=== PATIENT | female | born 1965 | race Caucasian/White ===

== ENCOUNTER → 2018-07-27 13:15 | Outpatient (REF) | payer OTHER, SELFPAY | LOC: LAB 13:15 | PROVIDERS: Family Provider Registered Nurse Women's Health Care, Ambulatory; PCP Registered Nurse Women's Health Care, Ambulatory; Visit Provider Family Medicine | DX: R07.0 Pain in throat (principal) | CPT/HCPCS: 87070 ==

== ENCOUNTER → 2022-05-14 16:18 | Outpatient (CLI) | payer OTHER, SELFPAY ==
--- NOTE | 2022-05-14 16:22 | DI.RAD.S_ITS ---
PROCEDURE: XR CHEST 2V INDICATIONS: COUGH AND FEVER TECHNIQUE: 2 views of the chest were acquired. COMPARISON: None. FINDINGS: Lungs and pleura: Lungs are clear. No pleural effusions or pneumothorax. Mediastinum: Cardiac silhouette is at the upper limit of normal in size. No definite pulmonary vascular congestion. Bones and chest wall: No suspicious bony abnormalities. Soft tissues appear unremarkable. IMPRESSION: No acute cardiopulmonary abnormality. Dictated by: Rj De Santiago M.D. on 05/14/2022 at 17:21 Approved by: Rj De Santiago M.D. on 05/14/2022 at 17:23
== END ==
PROVIDERS: Family Provider Registered Nurse Women's Health Care, Ambulatory; PCP Registered Nurse Women's Health Care, Ambulatory; Referring Provider Registered Nurse; Visit Provider Registered Nurse
DX: R05.9 Cough, unspecified (principal); R50.9 Fever, unspecified
CPT/HCPCS: 71046

== ENCOUNTER 2022-07-05 21:42 | Emergency (ER) | payer OTHER, SELFPAY ==
[2022-07-05 21:52] VITALS: BP 202/123; PULSE 80; RESP 18; TEMP 36.6; O2SAT 100; BMI 32.3
--- NOTE | 2022-07-05 22:01 | DI.RAD.S_ITS ---
PROCEDURE: XR CHEST 1V INDICATIONS: chest pain TECHNIQUE: One view of the chest was acquired. COMPARISON: [facility], CR, XR CHEST 2V, 05/14/2022, 16:42. FINDINGS: Surgical changes and devices: None. Lungs and pleura: Lungs are clear. No pleural effusions or pneumothorax. Mediastinum: Mediastinal contours appear normal. Heart size is normal. Bones and chest wall: No suspicious bony lesions. Overlying soft tissues appear unremarkable. IMPRESSION: 1. No acute cardiopulmonary disease. Dictated by: Jh Gomez M.D. on 07/05/2022 at 22:27 Approved by: Jh Gomez M.D. on 07/05/2022 at 22:27
[2022-07-05 22:16] VITALS: BP 181/109
[2022-07-05 22:24] LABS: Add Manual Diff / Slide Review NO; Basophils Absolute Auto 100 /uL (0-100); Basophils Percent Auto 1.8 % (0-2); Eosinophils Absolute Auto 200 /uL (0-450); Eosinophils Percent Auto 2.9 % (2-4); Hematocrit 38.2 % (36-46); Lymphocytes Absolute Auto 2400 /uL (1100-4500); Lymphocytes Percent Auto 32.7 % (25-40); Mean Corpuscular Hemoglobin 30.4 PG (26-34); Mean Corpuscular Volume 89.5 fL (80-100); Monocytes Absolute Auto 600 /uL (0-900); Monocytes Percent Auto 8.1 % (3-14); Neutrophils Absolute Auto 4000 /uL (1500-7000); Neutrophils Percent Auto 54.5 % (50-75); Platelet Count 289 X10^3/uL (150-400); Red Blood Cell Count 4.27 X10^6/uL (4.0-5.2); Red Cell Distribution Width 13.4 % (11.6-14.8); White Blood Cell Count 7.3 X10^3/uL (4.5-11.0)
[2022-07-05 22:29] LABS: Alanine Aminotransferase 35 IU/L (<35); Albumin 4.5 g/dL (3.5-5.0); Albumin Globulin Ratio 1.3 (1.0-2.8); Alkaline Phosphatase 109 U/L (38-126); Aspartate Aminotransferase 29 IU/L (14-36); BUN Creatinine Ratio 21.7 (6-22); Bilirubin Total 0.3 mg/dL (0.2-1.3); Blood Urea Nitrogen 15 mg/dL (7-17); Calcium 9.1 mg/dL (8.4-10.2); Carbon Dioxide 22 mmol/L (22-32); Chloride 103 mmol/L (98-107); Creatine Kinase 104 U/L (30-135); Estimated Glomerular Filt Rate > 60 mL/min (>60); Globulin 3.6 g/dL (1.7-4.1); Glucose 113 mg/dL (70-100); HEMOLYSIS 20 (0-50); Lipase 171 U/L (23-300); Magnesium 1.7 mg/dL (1.6-2.3); Potassium 3.6 mmol/L (3.4-5.1); Sodium 136 mmol/L (137-145); Total Protein 8.1 g/dL (6.3-8.2)
[2022-07-05 22:36] LABS: COVID19 -Nasal RAPID Negative (Negative)
[2022-07-05 22:38] LABS: NT-proBNP (BNP-Adult 18+) 48 pg/mL (<125)
[2022-07-05 22:39] LABS: INR 0.9 (0.9-1.3); Prothrombin Time 10.1 SECONDS (10.1-12.7)
[2022-07-05 22:40] LABS: Troponin I < 0.012 ng/mL (0.01-0.034)
[2022-07-05 22:42] LABS: PTT Partial Thromboplastin Tim 30 SECONDS (26-36)
[2022-07-05 22:44] LABS: CKMB % Relative Index 1.3 % (1.5-5.0); Creatine Kinase MB 1.34 ng/mL (<2.37)
[2022-07-05 23:10] VITALS: PULSE 81; O2SAT 97
[2022-07-05 23:20] VITALS: PULSE 74; O2SAT 97
[2022-07-05] MEDS: METOPROLOL IR 25 MG TABLET 50 MG PO (23:31)
[2022-07-05 23:33] VITALS: BP 169/108; PULSE 91; O2SAT 98
[2022-07-05 23:40] VITALS: PULSE 77; O2SAT 98
[2022-07-06] VITALS: PULSE 78; O2SAT 98
[2022-07-06 00:10] VITALS: BP 173/88; PULSE 73; O2SAT 98
--- NOTE | 2022-07-06 00:10 | ED.GENADULT ---
HPI - General Adult General Chief complaint: Hypertension Stated complaint: BP 220/120 Time Seen by Provider: 07/05/22 23:26 Source: patient Mode of arrival: Ambulatory History of Present Illness HPI narrative: 56-year-old female with history of hypertension and diabetes. Patient states that she presents for elevated blood pressure she was told to come to the ER for blood pressure is 170/110 or higher. She states she checked at home was 220/1 20s, she takes daily she is been averaging 140s typically but for the past 2 has been 150 to 160s. Patient states she has had headache occasionally but intermittently. She is a history of migraines she states it does not feel like that she describes it as mild, she denies dizziness, no passing-out, no fevers or chills, no cold cough or congestion. No chest pain or shortness of breath. No nausea or vomiting. She states she felt sweaty this morning and that she does get hot flashes. She denies diarrhea constipation. No urinary symptoms. No abdominal back or flank pain. No syncope. Patient notes that her metoprolol was changed from 50 mg b.i.d. which she had started in April. A week and a half ago she had her metoprolol changed to 100 mg extended-release daily and takes about 9:00 a.m.. She also takes metformin, she is Relpax as needed for migraines but has not taken it she does not feel like she is having a migraine. She is history knee surgery, , states allergy to amoxicillin. No tobacco, she will have 2 or 3 shots of Tequila 3 times a week. She denies any tonight but states her headaches get better when she has the Tequila. No illicit. Related Data Home Medications Medication Instructions Recorded Confirmed eletriptan 20 mg tablet (Relpax) 20 mg PO PRN ##0 06/30/12 06/22/21 norgestimate 0.25 mg-ethinyl 1 tab PO Q DAY ##0 06/30/12 06/22/21 estradiol 35 mcg tablet (Sprintec (28)) Previous Rx's Medication Instructions Recorded BENZONATATE (TESSALON PERLES~) 0 PO TIDP ##30 06/30/12 prednisone 20 mg tablet 0 PO SEE INSTRUCTIONS ##10 06/30/12 Allergies Allergy/AdvReac Type Severity Reaction Status Date / Time amoxicillin Allergy Severe Swelling Verified 07/05/22 21:52 of Lip/Tongue/Throat Review of Systems Review of Systems ROS Unobtainable: All systems reviewed & are unremarkable except as noted in HPI and below Patient History Social History Smoking Status: Never smoker Smoking Status: Never smoker alcohol intake frequency: holidays/special occasions only Alcohol type: hard liquor Substance Use Type: does not use Exam Narrative Exam Narrative: GEN: well nourished, well appearing female, alert and oriented x 3, patient appears to be in mild distress. HEENT: Atraumatic, pupils are equal round reactive to light, extraocular movements are intact, nares are clear, TMs are clear with no fluid, there is no conjunctival pallor. Throat is clear without any exudates, erythema, tonsillar enlargement or uvular deviation, facial droop. HEART: Regular rate and rhythm without murmur, clicks, rubs. LUNGS:Lungs clear to auscultation, no wheezes, rales, crackles, chest moves symmetrically ABD:bowel sounds normal, soft, non-tender, no guarding, rebound, rigidity, no masses noted, no hepatosplenomegaly :No CVA tenderness MSCL: Non-tender, no muscle atrophy, muscles strength 5/5 upper and lower extremities, full range of motion, normal gait NEURO:CN 2-12 intact, sensation normal Initial Vital Signs Initial Vital Signs: Vital Signs Temperature 98 F 07/05/22 21:52 Pulse Rate 80 07/05/22 21:52 Respiratory Rate 18 07/05/22 21:52 Blood Pressure 202/123 H 07/05/22 21:52 Pulse Oximetry 100 07/05/22 21:52 Oxygen Delivery Method 07/05/22 21:52 Course Orders Ordered: ED Orders 07/05/22 22:01 XR chest 1V Stat EKG-12 Lead Stat 07/05/22 22:08 BNP [NT-proBNP (BNP-Adult 18+)] Stat COVID19 -Nasal RAPID/Pre-Proc Stat Complete Blood Count AUTO DIFF Stat Comprehensive Metabolic Panel Stat Lipase Stat Magnesium Stat Partial Thromboplastin Time Stat Prothrombin Time INR Stat Troponin & CK Cardiac Panel Stat Discontinued Medications Metoprolol Tartrate (Metoprolol Ir 25 Mg Tablet) 50 mg PO NOW ONE Stop: 07/05/22 23:27 Last Admin: 07/05/22 23:31 Dose: 50 mg Documented By: BRIANA Vital Signs Vital signs: Vital Signs - 8 hr 07/05/22 23:10 07/05/22 23:20 07/05/22 23:33 Temperature Pulse Rate 81 74 91 H Respiratory Rate Blood Pressure Pulse Oximetry 97 97 98 Oxygen Delivery Method 07/05/22 23:33 07/05/22 23:40 07/06/22 00:00 Temperature Pulse Rate 77 78 Respiratory Rate Blood Pressure 169/108 H Pulse Oximetry 98 98 Oxygen Delivery Method 07/06/22 00:10 07/06/22 00:10 07/06/22 00:20 Temperature Pulse Rate 73 Respiratory Rate Blood Pressure 173/88 H 184/96 H Pulse Oximetry 98 Oxygen Delivery Method 07/06/22 00:20 07/06/22 00:40 07/06/22 00:40 Temperature Pulse Rate 64 69 Respiratory Rate Blood Pressure 160/96 H Pulse Oximetry 99 98 Oxygen Delivery Method 07/06/22 00:50 Temperature 97.4 F L Pulse Rate 80 Respiratory Rate 16 Blood Pressure 164/88 H Pulse Oximetry 99 Oxygen Delivery Method Room Air Medical Decision Making Lab Data Result diagrams: 07/05/22 22:08 07/05/22 22:08 Labs: Lab Results 07/05/22 07/05/22 07/05/22 Range/Units 22:08 22:08 22:08 WBC 7.3 (4.5-11.0) X10^3/uL RBC 4.27 (4.0-5.2) X10^6/uL Hgb 13.0 (12.0-16.0) g/dL Hct 38.2 (36-46) % MCV 89.5 (80-100) fL MCH 30.4 (26-34) PG MCHC 34.0 (30-36) % RDW 13.4 (11.6-14.8) % Plt Count 289 (150-400) X10^3/uL Neut % (Auto) 54.5 (50-75) % Lymph % (Auto) 32.7 (25-40) % Crenshaw % (Auto) 8.1 (3-14) % Eos % (Auto) 2.9 (2-4) % Baso % (Auto) 1.8 (0-2) % Neut # (Auto) 4000 (4315-0506) /uL Lymph # (Auto) 2400 (7174-6347) /uL Crenshaw # (Auto) 600 (0-900) /uL Eos # (Auto) 200 (0-450) /uL Baso # (Auto) 100 (0-100) /uL PT 10.1 (10.1-12.7) SECONDS INR 0.9 (0.9-1.3) APTT 30 (26-36) SECONDS Sodium 136 L (137-145) mmol/L Potassium 3.6 (3.4-5.1) mmol/L Chloride 103 (98-107) mmol/L Carbon Dioxide 22 (22-32) mmol/L BUN 15 (7-17) mg/dL Creatinine 0.69 (0.52-1.04) mg/dL Estimated GFR > 60 (>60) mL/min BUN/Creatinine Ratio 21.7 (6-22) Glucose 113 H (70-100) mg/dL Calcium 9.1 (8.4-10.2) mg/dL Magnesium 1.7 (1.6-2.3) mg/dL Total Bilirubin 0.3 (0.2-1.3) mg/dL AST 29 (14-36) IU/L ALT 35 H (<35) IU/L Alkaline Phosphatase 109 (38-126) U/L Total Creatine Kinase 104 (30-135) U/L CK-MB (CK-2) 1.34 (<2.37) ng/mL CK-MB (CK-2) Rel Index 1.3 L (1.5-5.0) % Troponin I < 0.012 (0.01-0.034) ng/mL NT-Pro-B Natriuret Pep (<125) pg/mL Total Protein 8.1 (6.3-8.2) g/dL Albumin 4.5 (3.5-5.0) g/dL Globulin 3.6 (1.7-4.1) g/dL Albumin/Globulin Ratio 1.3 (1.0-2.8) Lipase 171 (23-300) U/L SARS-CoV-2 (PCR) (Negative) 07/05/22 07/05/22 Range/Units 22:08 22:08 WBC (4.5-11.0) X10^3/uL RBC (4.0-5.2) X10^6/uL Hgb (12.0-16.0) g/dL Hct (36-46) % MCV (80-100) fL MCH (26-34) PG MCHC (30-36) % RDW (11.6-14.8) % Plt Count (150-400) X10^3/uL Neut % (Auto) (50-75) % Lymph % (Auto) (25-40) % Crenshaw % (Auto) (3-14) % Eos % (Auto) (2-4) % Baso % (Auto) (0-2) % Neut # (Auto) (9862-4946) /uL Lymph # (Auto) (0409-1689) /uL Crenshaw # (Auto) (0-900) /uL Eos # (Auto) (0-450) /uL Baso # (Auto) (0-100) /uL PT (10.1-12.7) SECONDS INR (0.9-1.3) APTT (26-36) SECONDS Sodium (137-145) mmol/L Potassium (3.4-5.1) mmol/L Chloride (98-107) mmol/L Carbon Dioxide (22-32) mmol/L BUN (7-17) mg/dL Creatinine (0.52-1.04) mg/dL Estimated GFR (>60) mL/min BUN/Creatinine Ratio (6-22) Glucose (70-100) mg/dL Calcium (8.4-10.2) mg/dL Magnesium (1.6-2.3) mg/dL Total Bilirubin (0.2-1.3) mg/dL AST (14-36) IU/L ALT (<35) IU/L Alkaline Phosphatase (38-126) U/L Total Creatine Kinase (30-135) U/L CK-MB (CK-2) (<2.37) ng/mL CK-MB (CK-2) Rel Index (1.5-5.0) % Troponin I (0.01-0.034) ng/mL NT-Pro-B Natriuret Pep 48 (<125) pg/mL Total Protein (6.3-8.2) g/dL Albumin (3.5-5.0) g/dL Globulin (1.7-4.1) g/dL Albumin/Globulin Ratio (1.0-2.8) Lipase (23-300) U/L SARS-CoV-2 (PCR) Negative (Negative) Imaging Data Chest x-ray: Radiologist's Impression: [address] [address] XRay Report Signed Patient: Wanda Raymundo MR#: [id number] : 1965 Acct:[id number] Age/Sex: 56 / F Date of Service: 07/05/22 Loc: ED Accession Number: [id number] ?? Procedure: XR chest 1V Ordering Provider: Era Hammond D.O. PROCEDURE:? XR CHEST 1V ? INDICATIONS:? chest pain ? TECHNIQUE:? One view of the chest was acquired.? ? COMPARISON:? [facility], CR, XR CHEST 2V, 05/14/2022, 16:42. ? FINDINGS:? ? Surgical changes and devices:? None.? ? Lungs and pleura:? Lungs are clear.? No pleural effusions or pneumothorax.? ? Mediastinum:? Mediastinal contours appear normal.? Heart size is normal.? ? Bones and chest wall:? No suspicious bony lesions.? Overlying soft tissues appear unremarkable.? ? IMPRESSION:? ? 1.? No acute cardiopulmonary disease. ? ? ? Dictated by: Jh Gomez M.D. on 07/05/2022 at 22:27 ? ? Approved by: Jh Gomez M.D. on 07/05/2022 at 22:27?? ECG Data Attestation: I personally reviewed and interpreted this ECG as follows: Prior ECG tracings: not available for review Interpretation: Sinus rhythm rate 83 DE 130 QRS 86 QTC [address] No acute ST changes noted. MDM Narrative Medical decision making narrative: This is a 56-year-old female with hypertension, diabetes who was hypertensive at home still quite hypertensive upon arrival despite taking her home medications, her exam overall is reassuring. I gave her a dose of her 50 mg short-acting metoprolol which she has tolerated well. Discussed if she is persistently hypertensive at home for the short-term can do an extra dose of her short-acting metoprolol but to continue her home medications and monitoring. We discussed she needs to follow up with her physician for recheck, discussion or adjustment of medications as needed. All questions answered we did discuss return precautions. Discharge Plan Departure Patient Disposition: Home Clinical Impression: Hypertension Instructions: DI for High Blood Pressure Activity Restrictions/Additional Instructions: Follow-up with your physician this week, you can call the physician office after hours if you are unsure if you can take an extra dose of your medication. They do have a person on-call available on nights and weekends. Your white blood cell count today was 7.3 Please take your home medications as prescribed. If your blood pressure is consistently running above 180 systolic on recheck at home, if you wait 1 or 2 hours and it is still elevated you can take an extra dose of her short-acting metoprolol. Please return for severe headaches, passing out, new chest pain, shortness of breath, persistent vomiting, new swelling in your extremities or other new or concerning changes. Prescriptions: No Action norgestimate-ethinyl estradiol [Sprintec (28)] 1 EACH tablet 1 tab PO Q DAY Qty: 0 eletriptan [Relpax] 20 MG tablet 20 mg PO PRN Qty: 0 prednisone 20 MG tablet 0 PO SEE INSTRUCTIONS Qty: 10 0RF BENZONATATE (TESSALON PERLES~) 0 PO TIDP Qty: 30 0RF Referrals: Zeenat Champion ARNP [Primary Care Provider] - Visit Report Forms: Patient Portal/API
[2022-07-06 00:20] VITALS: BP 184/96; PULSE 64; O2SAT 99
[2022-07-06 00:40] VITALS: BP 160/96; PULSE 69; O2SAT 98
[2022-07-06 00:50] VITALS: BP 164/88; PULSE 80; RESP 16; TEMP 36.3; O2SAT 99
== END 2022-07-06 00:45 | disposition home or self-care (01) ==
PROVIDERS: Emergency Provider Emergency Medicine; Family Provider Registered Nurse Women's Health Care, Ambulatory; PCP Registered Nurse Women's Health Care, Ambulatory
DX: I10 Essential (primary) hypertension (principal); Z20.822 Contact with and (suspected) exposure to COVID-19
CPT/HCPCS: 36415; 71045; 80053; 82550; 82553; 83690; 83735; 83880; 84484; 85025; 85610; 85730; 87635; 93005; 99283; 99284; C9803

== ENCOUNTER → 2022-07-09 17:34 | Outpatient (ROUT) | payer OTHER, SELFPAY ==
[2022-07-09 18:23] LABS: Influenza A - CEPHEID Flu A POSITIVE (NEGATIVE); Influenza B - CEPHEID Flu B NEGATIVE (NEGATIVE); Respiratory Syncytial Virus Negative (Negative)
[2022-07-09 18:24] LABS: COVID-19 CEPHEID 4-PLEX PCR Negative (Negative)
== END ==
PROVIDERS: Family Provider Registered Nurse Women's Health Care, Ambulatory; PCP Registered Nurse Women's Health Care, Ambulatory; Visit Provider Internal Medicine
DX: Z20.822 Contact with and (suspected) exposure to COVID-19 (principal)
CPT/HCPCS: 0241U

== ENCOUNTER → 2022-08-07 14:52 | Outpatient (CLI) | payer OTHER, SELFPAY ==
--- NOTE | 2022-08-07 | DI.MG.S_ITS ---
BILATERAL DIGITAL SCREENING MAMMOGRAM 3D/2D WITH CAD: 08/07/2022 CLINICAL: Routine screening. Comparison is made to exam dated: 10/08/2010 mammogram - [facility]. There are scattered areas of fibroglandular density in both breasts (category b / 25%-50% glandular tissue). Current study was also evaluated with a Computer Aided Detection (CAD) system. No significant masses, calcifications, or other findings are seen in either breast. There has been no significant interval change. IMPRESSION: NEGATIVE There is no mammographic evidence of malignancy. A 1 year screening mammogram is recommended. Based on the Tyrer Cuzick model (a risk assessment model) the patient's lifetime risk is 8.7% and her 10 year risk is 2.5%. According to the ACR, ACS, and NCCN guidelines, an annual breast MRI exam along with mammogram is recommended if the patient's lifetime risk is 20% or greater. This exam was interpreted at Station ID: [id number]. NOTE: For mammograms, a report in lay terms will be sent to the patient. Approximately 15% of breast malignancies will not be visualized mammographically. In the management of a palpable breast mass, a negative mammogram must not discourage biopsy of a clinically suspicious lesion. Electronically Signed By: Jh morgan/andre:08/10/2022 01:59:34 letter sent: Normal Exam ACR BI-RADS Category 1: Negative [id number]
== END ==
PROVIDERS: Family Provider Registered Nurse Women's Health Care, Ambulatory; PCP Internal Medicine; Referring Provider Internal Medicine; Visit Provider Internal Medicine
DX: Z12.31 Encounter for screening mammogram for malignant neoplasm of breast (principal); Z13.820 Encounter for screening for osteoporosis; Z78.0 Asymptomatic menopausal state; M81.0 Age-related osteoporosis without current pathological fracture; Z87.311 Personal history of (healed) other pathological fracture
CPT/HCPCS: 77063; 77067; 77080

== ENCOUNTER → 2023-12-27 16:45 | Outpatient (CLI) | payer OTHER, SELFPAY ==
--- NOTE | 2023-12-27 16:47 | DI.RAD.S_ITS ---
PROCEDURE: XR ANKLE RT MIN 3V INDICATIONS: ANKLE PAIN, INJURY TECHNIQUE: 3 views of the ankle were acquired. COMPARISON: None. FINDINGS: Bones: Avulsion fracture at the base of the lateral malleolus. Ankle mortise is maintained. No posterior or medial malleolar fractures. Soft tissues: Moderate tibiotalar joint effusion. Achilles tendon appears normal. Moderate ankle swelling. IMPRESSION: Avulsion fracture at the base of the lateral malleolus. No unstable fracture features. Dictated by: Kenton De Oliveira M.D. on 12/28/2023 at 8:16 Approved by: Kenton De Oliveira M.D. on 12/28/2023 at 8:17
== END ==
PROVIDERS: Family Provider Registered Nurse Women's Health Care, Ambulatory; PCP Internal Medicine; Referring Provider Internal Medicine; Visit Provider Internal Medicine
DX: S82.61XA Displaced fracture of lateral malleolus of right fibula, initial encounter for closed fracture (principal); X58.XXXA Exposure to other specified factors, initial encounter
CPT/HCPCS: 73610